=== PATIENT | male | born 2000 | race Caucasian/White ===

== ENCOUNTER 2022-11-06 17:42 | Emergency (ER) | payer BC, MEDICAID ==
[2022-11-06] MEDS ORDERED: methylPREDNISolone Sodium Succinate 125 MG/2 ML SDV IVPUSH ONE (17:43)
[2022-11-06] MEDS ORDERED: diphenhydrAMINE 50 MG/ML SDV IVPUSH ONE ×2 (17:43→17:44)
[2022-11-06] MEDS ORDERED: Famotidine 20 MG/2 ML SDV IVPUSH ONE (17:43)
[2022-11-06] MEDS ORDERED: EPINEPHrine 1 MG/ML SDV IM ONE (17:43)
== END 2022-11-06 20:16 | disposition home or self-care (01) ==
LOC: JD.ED 17:42
DX: T78.1XXA Other adverse food reactions, not elsewhere classified, initial encounter (principal); Z91.018 Allergy to other foods
CPT/HCPCS: 96372; 96374; 96375; 99283-25; 99284; J0171; J1200; J2930; J3490